=== PATIENT | female | born 2000 | race Caucasian/White ===

== ENCOUNTER 2020-07-10 23:15 | Emergency (ER) | payer OTHER ==
[2020-07-10 23:54] LABS: BASOPHIL 0.3 % (0-2); EOSINOPHIL 0.8 % (0-5); HCT 35.7 % (37.0-47.0); HGB 11.2 g/dl (12.5-16.0); LYMPHOCYTE 21.7 % (15-48); MCH 25.5 pg (25.0-31.0); MCHC 31.4 g/dL (32.0-36.0); MCV 81.1 fL (78.0-100.0); MONOCYTE 6.4 % (0-12); NEUTROPHIL 70.5 % (41-80); NRBC 0; PLT 321 K/uL (150-400); RDW 15.2 % (11.5-14.0); WBC 11.6 K/uL (4.0-10.5)
[2020-07-11 00:15] LABS: ALBUMIN 3.3 g/dL (3.4-5.0); BILIRUBIN - DIRECT 0.1 mg/dL (0.00-0.20); BILIRUBIN - TOTAL 0.3 mg/dL (0.2-1.0); CREATININE 0.6 mg/dL (0.51-0.95); GLOBULIN (CALCULATION) 4.1 g/dL; POTASSIUM 3.7 mmol/L (3.5-5.1); TOTAL PROTEIN 7.4 g/dL (6.4-8.2)
== END 2020-07-11 03:05 | disposition home or self-care (01) ==
LOC: FER 23:15
PROVIDERS: Student in an Organized Health Care Education/Training Program
DX: R55 Syncope and collapse (principal)
CPT/HCPCS: 36415; 70450; 80048; 80076; 84146; 84703; 85025; 85379; 93005